=== PATIENT | male | born 1965 | race Caucasian/White ===

== ENCOUNTER → 2024-04-26 15:04 | Outpatient (BNVA) | payer OTHER, SELFPAY | PROVIDERS: Family Provider Physician Assistant Medical; PCP Nurse Practitioner Family; Visit Provider Nurse Practitioner Family | DX: Q23.1 Congenital insufficiency of aortic valve (principal); I10 Essential (primary) hypertension; R60.9 Edema, unspecified | CPT/HCPCS: 80053; 80061; 83880; 85025; 93005 ==

== ENCOUNTER 2024-06-15 16:00 | Outpatient (CLI) | payer OTHER, SELFPAY | END 2024-06-15 16:01 | disposition home or self-care (01) | LOC: SLEEP 06-16 09:21 | PROVIDERS: Family Provider Physician Assistant Medical; PCP Registered Nurse; Visit Provider Registered Nurse | DX: G47.33 Obstructive sleep apnea (adult) (pediatric) (principal) | CPT/HCPCS: G0399 ==

== ENCOUNTER 2025-06-15 08:49 | Emergency (ER) | payer OTHER, SELFPAY ==
[2025-06-15 08:55] VITALS: BP 152/73; PULSE 83; RESP 18; TEMP 36.4; O2SAT 96; BMI 25.0
--- OUTSIDE RECORDS SUMMARY | 2025-06-15 09:13 | XMS_ITS | Encounter Summary ---
Author Organization [facility] Address [address] [place] [address] Care Team Providers Care Hob Grinder Name Role Phone Kelly Motley MD Primary Care Provider Encounter Details Date Type Department Care Team (Latest Contact Info) Description 02/09/2007 Outpatient Historical [facility] Family Medicine [place] [address] [address] Hermes Cleary DO NO ADDRESS ON FILE Unspecified Essential Hypertension (Primary Dx); Other and Unspecified Hyperlipidemia Social History Tobacco Use Types Packs/Day Years Used Date Smoking Tobacco: Never Assessed Sex and Gender Information Value Date Recorded Sex Assigned at Not on file 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
--- OUTSIDE RECORDS SUMMARY | 2025-06-15 09:13 | XMS_ITS | Encounter Summary ---
Author Organization [facility] Address [address] [place] [address] Care Team Providers Care Stick Roller Name Role Phone Kelly Motley MD Primary Care Provider Encounter Details Date Type Department Care Team (Latest Contact Info) Description 11/14/2005 Outpatient Historical [facility] 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
--- OUTSIDE RECORDS SUMMARY | 2025-06-15 09:13 | XMS_ITS | Encounter Summary ---
Author Organization [facility] Address [address] [place] [address] Care Team Providers Care Healthcare Technician Name Role Phone Kelly Motley MD Primary Care Provider Encounter Details Date Type Department Care Team (Latest Contact Info) Description 10/11/2002 Outpatient Historical [facility] [address] [place] [address] [place] [phone] Omar Ramirez MD NO ADDRESS ON FILE HYPERSOMNI W SLEEP APNEA (Primary Dx) Social History Tobacco Use Types Packs/Day Years Used Date Smoking Tobacco: Never Assessed Sex and Gender Information Value Date Recorded Sex Assigned at Not on file 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
--- OUTSIDE RECORDS SUMMARY | 2025-06-15 09:13 | XMS_ITS | Encounter Summary ---
Author Organization [facility] Address [address] [place] [address] Care Team Providers Care Lapidarist Name Role Phone Kelly Motley MD Primary Care Provider Encounter Details Date Type Department Care Team (Latest Contact Info) Description 01/21/2003 Outpatient Historical [facility] Family Medicine [place] [address] [address] Hermes Cleary DO NO ADDRESS ON FILE CHEST PAIN NOS (Primary Dx); OTHER UNSPEC SLEEP APNEA Social History Tobacco Use Types Packs/Day Years Used Date Smoking Tobacco: Never Assessed Sex and Gender Information Value Date Recorded Sex Assigned at Not on file 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
--- OUTSIDE RECORDS SUMMARY | 2025-06-15 09:13 | XMS_ITS | Encounter Summary ---
Author Organization [facility] Address [address] [place] [address] Care Team Providers Care Fire And Explosion Investigator Name Role Phone Kelly Motley MD Primary Care Provider Encounter Details Date Type Department Care Team (Latest Contact Info) Description 04/27/2003 Outpatient Historical [facility] Family Medicine [place] [address] [phone] Hermes Cleary DO NO ADDRESS ON FILE IMPACTED CERUMEN (Primary Dx) Social History Tobacco Use Types Packs/Day Years Used Date Smoking Tobacco: Never Assessed Sex and Gender Information Value Date Recorded Sex Assigned at Not on file 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
--- OUTSIDE RECORDS SUMMARY | 2025-06-15 09:13 | XMS_ITS | Clinical Summary ---
Author Organization [facility] Address [address] [place] [address] Care Team Providers Care Outdoor Adventure Instructor Name Role Phone Kelly Motley MD Primary Care Provider [phone] Allergies No known active allergies Medications lovastatin (MEVACOR) 40 mg tablet TAKE 1 TABLET BY MOUTH ONCE DAILY WITH SUPPER FOR CHOLESTEROL 100 Tablet 3 5 Active tamsulosin (FLOMAX) 0.4 mg capsule Take 1 Capsule (0.4 mg) by mouth daily. 100 Capsule 3 5 Active ibuprofen (MOTRIN) 800 mg tablet Take 1 Tablet (800 mg) by mouth every 6 hours as needed for Pain. 30 Tablet 5 Active Active Problems Problem Noted Date Diagnosed Date Bicuspid aortic valve 10/19/2021 Syncope and collapse 02/10/2011 Hyperlipidemia 02/08/2011 Hypertension 02/08/2011 Sleep apnea 02/08/2011 Seizure 11/07/2010 Encounters Date Type Department Care Team Description 06/14/2025 External Device Data [facility] ABSTRACTION Provider, Abstract 06/08/2025 External Device Data [facility] ABSTRACTION Provider, Abstract from Last 3 Months Immunizations Immunization Administration Dates Next Due INFLUENZA VACCINE QUADRIVALENT 3 YR UP PF IM 01/2020,05/18/2019 Family History Medical History Relation Name Comments Other Father Heart Disease Maternal Grandfather starte d at age 84 Other Maternal Grandmother alzheim ers Colon Polyps Mother Hypertension Mother Healthy Paternal Grandfather Other Paternal Grandmother arthrit is Breast Cancer Neg Hx Colon Cancer Neg Hx Relation Name Status Comments Father Maternal Grandfather Maternal Grandmother Mother Alive Paternal Grandfather Paternal Grandmother Social History Tobacco Use Types Packs/Day Years Used Date Smoking Tobacco: Former Cigarettes Q uit: 08/18/1998 Smokeless Tobacco: Never Alcohol Use Standard Drinks/Week Comments Yes 1.7 (1 standard drink = 0.6 oz p ure alcohol) Feeling Safe Answer Date Recorded Are you in a relationship wi th someone who hurts you emotionally and/or physically? 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 Gender Identity Not on file Sexual Orientation Not on file Last Filed Vital Signs Vital Sign Reading Time Taken Comments Blood Pressure 100/70 03/14/2025 8:27 AM CDT Pulse 58 03/14/2025 8:27 AM CDT Temperature 36.4 C (97.6 F) 11/15/2024 3:34 PM CDT Respiratory Rate 18 11/15/2024 3:34 PM CDT Oxygen Saturation 100% 11/15/2024 3:34 PM CDT Inhaled Oxygen Concentration - - Weight 83.5 kg (184 lb) 03/14/2025 8:21 AM CDT Height 182.9 cm (6') 03/14/2025 8:21 AM CDT Body Mass Index 24.95 03/14/2025 8:21 AM CDT Plan of Treatment Upcoming Encounters Date Type Department Care Team (Late st Contact Info) Description 11/17/2025 3:40 PM CDT Office Visit [facility] Medicine [address] [phone] Kelly Motley MD [address] [phone] 03/15/2026 3:30 PM CDT Office Visit [facility] [address] [facility] [address] [place] [phone] Zakia Garcia, [address] [facility] [address] [place] [phone] Health Maintenance Due Date Last Done Comments DTAP/TDAP/TD VACCINES (1 - Tdap) 1984 HEPATITIS B VACCINES (1 of 3 - 19+ 3-dose series) 1984 FIT-DNA Q 3 years 2010 FIT/FOBT Q 1 year 2010 Flex Sig/CT Colonography Q 5 years 2010 ZOSTER VACCINE (1 of 2) 2015 Preventative Visit- Commercial 08/18/2024 08/22/2017 INFLUENZA VACCINE (#1) 2025 05/23/2020, 2018 COLORECTAL SCREENING 03/15/2034 03/15/2024 Colorectal Cancer Screening 03/15/2034 Insurance [employer] EX[place]ANGE [id number] [place] [id number] Advance Directives For more information, please contact: [phone] * Full Code (Latest Code Status on File) Date Activated Date Inactivated Comments 03/15/2024 11:09 AM 03/15/2024 1:53 PM * Full Code Date Activated Date Inactivated Comments 03/15/2024 10:19 AM 03/15/2024 11:09 AM Care Teams Outdoor Adventure Instructor Relationship Specialty Start Date End Date Kelly Motley MD [address] [facility] [address] [place] [phone] PCP - General Family Practice 01/01/18
--- OUTSIDE RECORDS SUMMARY | 2025-06-15 09:13 | XMS_ITS | Encounter Summary ---
Author Organization [facility] Address [address] [place] [address] Care Team Providers Care Metal Washing Machine Operator Name Role Phone Kelly Motley MD Primary Care Provider Encounter Details Date Type Department Care Team (Late st Contact Info) Description 04/29/2016 Lab Requisition [facility] Laboratory Services [facility] [address] [place] [phone] Krystian Lockett MD NO ADDRESS ON FILE Social History Tobacco Use Types Packs/Day Years Used Date Smoking Tobacco: Former Cigarettes Q uit: 08/18/1998 Smokeless Tobacco: Never Alcohol Use Standard Drinks/Week Comments Yes 1.7 (1 standard drink = 0.6 oz p ure alcohol) month Sex and Gender Information Value Date Recorded Sex Assigned at Not on file 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 Blood Collection / Unknown 04/29/2016 7:46 AM CDT 04/29/2016 11:59 AM CDT [facility] - 04/29/2016 1:07 PM CDT <100 mg/dl: Normal Fasting Glucose 100-125 mg/dl: Impaired Fasting Glucose >/=126 mg/dl: Provisional diagnosis of Diabetes The diagnosis must be confirmed. us Krystian Lockett MD CHEMISTRY ORDERABLES Final Res ult [facility] CLIA# [id number] [address] [place] [id number] * (ABNORMAL) LIPID PANEL (04/29/2016 7:46 AM CDT) CHOLESTEROL 257(H) <200 mg/dL 04/29/2016 1:07 PM CDT [facility] TRIGLYCERIDE 105 <150 mg/dL 04/29/2016 1:07 PM CDT [facility] HDL 50 40 - 59 mg/dL 04/29/2016 1:07 PM T [facility] LDL CALCULATED 186(H) <100 mg/dL 04/29/2016 1:07 PM T [facility] NON-HDL CHOLESTEROL 207(H) <130 mg/dL 04/29/2016 1:07 PM T [facility] Blood Collection / Unknown 04/29/2016 7:46 AM CDT 04/29/2016 11:59 AM CDT [facility] - 04/29/2016 1:07 PM CDT TOTAL CHOLESTEROL mg/dL Desirable <200 Borderline high 200-239 High >=240 TRIGLYCERIDES mg/dL Normal <150 Borderline high 150-199 High 200-499 Very high >=500 HDL CHOLESTEROL mg/dL Low <40 Normal 40-59 Desirable >=60 NON HDL CHOLESTEROL mg/dL Optimal <130 Near Optimal 130-159 Borderline High 160-189 Very High >=190 Calculated LDL mg/dL Optimal <100 Near Optimal 100-129 Borderline High 130-159 High 160-189 Very High >=190 ATPIII Guidelines Reference Ranges for Lipid Panels (NCEP/AMA) us Krystian Lockett MD CHEMISTRY ORDERABLES Final Res ult [facility] CLVT# [id number] [address] [place] [address] documented in this encounter Visit Diagnoses Not on filedocumented in this encounter Care Teams Metal Washing Machine Operator Relationship Specialty Start Date End Date Kelly Motley MD [address] [facility] [address] [place] [address] PCP - General Family Practice 01/01/18 documented as of this encounter
--- OUTSIDE RECORDS SUMMARY | 2025-06-15 09:13 | XMS_ITS | Encounter Summary ---
Author Organization [facility] Address [address] [place] [address] Care Team Providers Care Lithograph Printer Name Role Phone Kelly Motley MD Primary Care Provider Encounter Details Date Type Department Care Team (Latest Contact Info) Description 02/14/[address] 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
--- OUTSIDE RECORDS SUMMARY | 2025-06-15 09:13 | XMS_ITS | Encounter Summary ---
Author Organization [facility] Address [address] [place] [address] Care Team Providers Care Pediatric Clinical Dietician Name Role Phone Kelly Motley MD Primary Care Provider Encounter Details Date Type Department Care Team (Latest Contact Info) Description 09/23/2005 Outpatient Historical [facility] Medicine [place] [address] [phone] Hermes Cleary DO NO ADDRESS ON FILE HYPERTENSION NOS (Primary Dx); HYPERLIPIDEMIA NEC/NOS; FAMILY HX ISCHEM HEART DIS Social History Tobacco Use Types Packs/Day Years Used Date Smoking Tobacco: Never Assessed Sex and Gender Information Value Date Recorded Sex Assigned at Not on file 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
--- OUTSIDE RECORDS SUMMARY | 2025-06-15 09:13 | XMS_ITS | Encounter Summary ---
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
--- OUTSIDE RECORDS SUMMARY | 2025-06-15 09:13 | XMS_ITS | Encounter Summary ---
Author Organization [facility] Address [address] [place] [address] Care Team Providers Care Applications Architect Name Role Phone Kelly Motley MD Primary Care Provider Encounter Details Date Type Department Care Team (Latest Contact Info) Description 02/21/2006 Outpatient [facility] [address] [place] [phone] Hermes Cleary, NO ADDRESS ON FILE Unspecified Chest Pain (Primary Dx) Social History Tobacco Use Types Packs/Day Years Used Date Smoking Tobacco: Never Assessed Sex and Gender Information Value Date Recorded Sex Assigned at Not on file 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 Gender Identity Not on file Sexual Orientation Not on file documented as of this encounter Plan of Treatment Not on file documented as of this encounter Procedures Procedure Name Priority Date/Time Associated Diagnosis Comments STRESS TEST EXERCISE NUCLEAR MED Routine 02/21/2006 12:01 AM CDT NM MYOCARD PERF IMAG SPECT MULT Routine 02/21/2006 12:01 AM CDT documented in this encounter Results * NM MYOCARD PERF IMAG SPECT MULT (02/21/2006 12:01 AM CDT) 02/21/2006 12:0 1 AM CDT Narrative INTERFACE SYSTEM - 02/21/2006 12:01 AM CDT 02/21/2006 Radiopharmaceutical: Tc-99m (technetium-99m) tetrofosmin (rest) Dose: 10.7 mCi Tc-99m (technetium-99m) tetrofosmin (stress) 29.4 mCi Reason for Consultation: Chest pain, at risk for coronary artery disease. For evaluation of myocardial perfusion reserve / risk. RADIONUCLIDE MYOCARDIAL PERFUSION SPECT REST / STRESS WALL MOTION EJECTION FRACTION EVALUATION: The initial static images demonstrate that the heart is overall normal in size. Right ventricular activity appears normal. The left ventricular wall does not appear thickened. The distribution of tracer around the left ventricle is relatively uniform on the immediate post- stress images. There were no areas that showed obvious differences in tracer concentration in comparison to the resting study. Evaluation of left ventricular wall motion demonstrates normal wall motion and wall thickening throughout the left ventricular myocardium. Left ventricular end-diastolic volume is 128 mL. The resting left ventricular ejection fraction was 67%. Transient ischemic dilation index is 0.97. IMPRESSION: There is no obvious evidence for stress-induced cardiac ischemia. There is normal resting left ventricular regional wall motion and wall thickening. francisco Dictated By: Rikki Chambers M.D. Electronically Signed By: Rikki Chambers M.D. Date Signed: 02/21/06 JAW Procedure Note 07/06/2009 02/21/2006 Radiopharmaceutical: Tc-99m (technetium-99m) tetrofosmin (rest) Dose: 10.7 mCi Tc-99m (technetium-99m) tetrofosmin (stress) 29.4 mCi Reason for Consultation: Chest pain, at risk for coronary artery disease. For evaluation ofmyocardial perfusion reserve / risk. RADIONUCLIDE MYOCARDIAL PERFUSION SPECT REST / STRESS WALL MOTION EJECTIONFRACTION EVALUATION: The initial static images demonstrate that the heart is overall normal insize. Right ventricular activity appears normal. The left ventricular wall does not appearthickened. The distribution of tracer around the left ventricle is relatively uniform on the immediatepost- stress images. There were no areas that showed obvious differences in tracer concentration incomparison to the resting study. Evaluation of left ventricular wall motion demonstrates normal wall motionand wall thickening throughout the left ventricular myocardium. Left ventricular end-diastolic volume is 128 mL. The resting leftventricular ejection fraction was 67%. Transient ischemic dilation index is 0.97. IMPRESSION: There is no obvious evidence for stress-induced cardiac ischemia. Thereis normal resting left ventricular regional wall motion and wall thickening. jaw Dictated By: Rikki Chambers M.D. Electronically Signed By: Rikki Chambers M.D. Date Signed: 02/21/06 FRANCISCO Hermes Cleary DO [place] ORDERABLES Final Result INTERFACE SYSTEM Refer to clinic/hospital department * STRESS TEST,EXERCISE, NUCLEAR MED (02/21/2006 12:01 AM CDT) 02/21/2006 12:0 1 AM CDT Narrative INTERFACE SYSTEM - 02/21/2006 12:01 AM CDT 02/21/2006 Reason for Consultation: Chest pain, at risk for coronary artery disease. For evaluation of myocardial perfusion reserve / risk. CARDIAC STRESS TEST WITH RHYTHMIC / TREADMILL EXERCISE, MONITORING, AND INTERPRETATION: Dr. Chambers monitored the intervention and administered the pharmacologic agent. The patient exercised on a treadmill for a total time of 11 minutes 11 seconds, completing 1 minute 46 seconds of stage V of a standard David protocol, advanced as tolerated in the early stages. Exercise was terminated for exceeding target heart rate. The radiopharmaceutical agent was injected at peak exercise one minute prior to cessation. The patient was asymptomatic. Resting heart rate of 77 increased to 159 at maximum stress, which is 88% MPHR, exceeding target of 85%. Resting blood pressure of 146/98 was measured at 192/90 at maximum stress with a maximal rate-pressure product of 27K. Electrocardiographic monitoring demonstrated no changes diagnostic of ischemia nor dysrhythmia. The patient was asymptomatic and stable when discharged from the stress area. IMPRESSION: Good exercise tolerance. Satisfactory rhythmic stress in preparation for myocardial perfusion imaging, as target heart rate was exceeded. There was no clinical or electrocardiographic evidence of ischemia. Myocardial perfusion imaging report to follow. francisco Dictated By: Rikki Chambers M.D. Electronically Signed By: Rikki Chambers M.D. Date Signed: 02/21/06 [facility] Procedure Note 07/06/2009 02/21/2006 Reason for Consultation: Chest pain, at risk for coronary artery disease. For evaluation ofmyocardial perfusion reserve / risk. CARDIAC STRESS TEST WITH RHYTHMIC / TREADMILL EXERCISE, MONITORING, ANDINTERPRETATION: Dr. Chambers monitored the intervention and administered thepharmacologic agent. The patient exercised on a treadmill for a total time of 11 minutes 11seconds, completing 1 minute 46 seconds of stage V of a standard David protocol, advanced as tolerated inthe early stages. Exercise was terminated for exceeding target heart rate. The radiopharmaceuticalagent was injected at peak exercise one minute prior to cessation. The patient was asymptomatic. Restingheart rate of 77 increased to 159 at maximum stress, which is 88% MPHR, exceeding target of 85%. Restingblood pressure of 146/98 was measured at 192/90 at maximum stress with a maximal rate-pressure productof 27K. Electrocardiographic monitoring demonstrated no changes diagnostic of ischemia nor dysrhythmia.The patient was asymptomatic and stable when discharged from the stress area. IMPRESSION: Good exercise tolerance. Satisfactory rhythmic stress in preparation formyocardial perfusion imaging, as target heart rate was exceeded. There was no clinical orelectrocardiographic evidence of ischemia. Myocardial perfusion imaging report to follow. francisco Dictated By: Rikki Chambers M.D. Electronically Signed By: Rikki Chambers M.D. Date Signed: 02/21/06 JAW Hermes Cleary DO [place] ORDERABLES Final Result Performing Organization Address City/State/[facility] Co de Phone Number INTERFACE SYSTEM Refer to clinic/hospital department documented in this encounter Visit Diagnoses Diagnosis Chest pain, unspecified- Primary documented in this encounter Care Teams Applications Architect Relationship Specialty Start Date End Date Kelly Motley MD [address] [facility] [address] [place] [address] PCP - General Family Practice 01/01/18 documented as of this encounter
--- OUTSIDE RECORDS SUMMARY | 2025-06-15 09:13 | XMS_ITS | Encounter Summary ---
Author Organization [facility] Address [address] [place] [address] Care Team Providers Care Corporate Strategy Analyst Name Role Phone Kelly Motley MD Primary Care Provider [phone] Encounter Details Date Type Department Care Team (Latest Contact Info) Description 07/06/2002 Outpatient Historical [facility] Family Medicine [address] [phone] Hermes Cleary DO NO ADDRESS ON FILE OTHER UNSPEC SLEEP APNEA (Primary Dx) Social History Tobacco Use Types Packs/Day Years Used Date Smoking Tobacco: Never Assessed Sex and Gender Information Value Date Recorded Sex Assigned at Not on file 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
--- OUTSIDE RECORDS SUMMARY | 2025-06-15 09:13 | XMS_ITS | Clinical Summary ---
Author Organization [facility] Address [address] [place] [address] Care Team Providers Care Darklight Inspector Name Role Phone Kelly Motley MD Primary Care Provider Allergies No known active allergies Medications atenoloL (TENORMIN) 25 mg tablet TAKE 1 TABLET(25 MG) BY MOUTH DAILY 90 Tablet 3 0 Active lovastatin (MEVACOR) 40 mg tablet TAKE 1 TABLET(40 MG) BY MOUTH DAILY WITH SUPPER FOR CHOLESTEROL 90 Tablet 3 0 Active predniSONE (DELTASONE) 20 mg tablet Take 1 Tablet (20 mg) by mouth daily. 7 Tablet 1 Active Active Problems Problem Noted Date Diagnosed Date Syncope and collapse 02/10/2011 Hypertension 02/08/2011 Hyperlipidemia 02/08/2011 Sleep apnea 02/08/2011 Seizure 11/07/2010 Immunizations Immunization Administration Dates Next Due INFLUENZA VACCINE QUADRIVALENT 3 YR UP PF IM 01/2020,05/18/2019 05/23/2021 Family History Medical History Relation Name Comments Other Father Heart Disease Maternal Grandfather starte d at age 84 Other Maternal Grandmother alzheim ers Hypertension Mother Healthy Paternal Grandfather Other Paternal Grandmother arthrit is Breast Cancer Neg Hx Colon Cancer Neg Hx Relation Name Status Comments Father Maternal Grandfather Maternal Grandmother Mother Alive Paternal Grandfather Paternal Grandmother Social History Tobacco Use Types Packs/Day Years Used Date Smoking Tobacco: Some Days Cigarettes Last attempted to quit: 08/18/1998 Smokeless Tobacco: Never Tobacco Cessation:Ready to Q uit: No; Counseling Given: Yes Alcohol Use Standard Drinks/Week Comments Yes 1.7 (1 standard drink = 0.6 oz p ure alcohol) month Sex and Gender Information Value Date Recorded Sex Assigned at Not on file 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 Gender Identity Not on file Sexual Orientation Not on file Last Filed Vital Signs Vital Sign Reading Time Taken Comments Blood Pressure 142/78 02/09/2021 3:01 PM CDT Pulse 64 02/09/2021 3:01 PM CDT Temperature 36.6 C (97.9 F) 02/09/2021 3:01 PM CDT Respiratory Rate 18 02/09/2021 3:01 PM CDT Oxygen Saturation 98% 02/09/2021 3:01 PM CDT Inhaled Oxygen Concentration - - Weight 78 kg (172 lb) 02/09/2021 3:01 PM CDT Height 182.9 cm (6') 02/09/2021 3:01 PM CDT Body Mass Index 23.33 02/09/2021 3:01 PM CDT Plan of Treatment Health Maintenance Due Date Last Done Comments DTAP/TDAP/TD VACCINES (1 - Tdap) 1984 HEPATITIS B VACCINES (1 of 3 - 19+ 3-dose series) 1984 COLORECTAL SCREENING 2010 Colorectal Cancer Screening 2010 FIT-DNA Q 3 years 2010 FIT/FOBT Q 1 year 2010 Flex Sig/CT Colonography Q 5 years 2010 ZOSTER VACCINE (1 of 2) 2015 Preventative Visit- Commercial 08/18/2024 08/22/2017 INFLUENZA VACCINE (#1) 2025 05/23/2020, 2018 Insurance [place] [address] Advance Directives For more information, please contact: [phone] Documents on File Type Date Recorded Patient Instrument Sterilizer Expl anation Advance Directive POA 10/18/2008 Care Teams Darklight Inspector Relationship Specialty Start Date End Date Kelly Motley MD [address] [facility] [address] [place] [address] PCP - General Family Practice 01/01/18
--- OUTSIDE RECORDS SUMMARY | 2025-06-15 09:13 | XMS_ITS | Encounter Summary ---
Author Organization [facility] Address [address] 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 Gender Identity Not on file Sexual Orientation Not on file documented as of this encounter Plan of Treatment Not on file documented as of this encounter Procedures Procedure Name Priority Date/Time Associated Diagnosis Comments LIPID PANEL Routine 11/14/2005 8:35 AM INTERNAL GRINDING MACHINE OPERATOR documented in this encounter Results * (ABNORMAL) LIPID PANEL (11/14/2005 8:35 AM INTERNAL GRINDING MACHINE OPERATOR) CALCULATED TOTAL CHOLESTEROL TO HDL RATIO 3.38(L) 3.43 - 4.97 INTERFACE SYSTEM CHOLESTEROL 169 75 - 200 mg/dL INTERFACE SYSTEM GLUCOSE 81 70 - 110 mg/dL INTERFACE SYSTEM HDL 50 40 - 60 mg/dL INTERFACE SYSTEM LDL CALCULATED 101 0 - 130 mg/dL INTERFACE SYSTEM TRIGLYCERIDE 89 0 - 179 mg/dL INTERFACE SYSTEM 11/14/2005 8:35 AM INTERNAL GRINDING MACHINE OPERATOR us Historical Provider CHEMISTRY ORDERABLES Final R esult INTERFACE SYSTEM Refer to clinic/hospital department documented in this encounter Visit Diagnoses Not on filedocumented in this encounter Care Teams Circulation Supervisor Relationship Specialty Start Date End Date Kelly Motley MD [address] [phone] PCP - General Family Practice 01/01/18 documented as of this encounter
--- OUTSIDE RECORDS SUMMARY | 2025-06-15 09:13 | XMS_ITS | Encounter Summary ---
Author Organization [facility] Address [address] [place] [address] Care Team Providers Care Filer Helper Name Role Phone Kelly Motley MD Primary Care Provider Encounter Details Date Type Department Care Team (Latest Contact Info) Description 09/24/2002 Outpatient Historical [facility] [address] [place] [address] [place] [phone] Omar Ramirez MD NO ADDRESS ON FILE HYPERSOMNI W SLEEP APNEA (Primary Dx) Social History Tobacco Use Types Packs/Day Years Used Date Smoking Tobacco: Never Assessed Sex and Gender Information Value Date Recorded Sex Assigned at Not on file 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
--- OUTSIDE RECORDS SUMMARY | 2025-06-15 09:13 | XMS_ITS | Encounter Summary ---
Author Organization [facility] Address [address] 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
--- OUTSIDE RECORDS SUMMARY | 2025-06-15 09:13 | XMS_ITS | Encounter Summary ---
Author Organization [facility] Address [address] [place] [address] Care Team Providers Care Steam Plant Control Room Operator Name Role Phone Kelly Motley MD Primary Care Provider Encounter Details Date Type Department Care Team (Latest Contact Info) Description 03/03/2003 Outpatient Historical [facility] [address] [place] [address] [place] [address] Adelina Orr AUTOMATION SPECIALIST [address] [place] [address] OTHER UNSPEC SLEEP APNEA (Primary Dx) Social History Tobacco Use Types Packs/Day Years Used Date Smoking Tobacco: Never Assessed Sex and Gender Information Value Date Recorded Sex Assigned at Not on file 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
--- OUTSIDE RECORDS SUMMARY | 2025-06-15 09:13 | XMS_ITS | Encounter Summary ---
Author Organization [facility] Address [address] [place] [address] Care Team Providers Care Endband Cutter Hand Name Role Phone Kelly Motley MD Primary Care Provider Encounter Details Date Type Department Care Team (Latest Contact Info) Description 01/23/2003 Outpatient Historical [facility] [address] 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
--- OUTSIDE RECORDS SUMMARY | 2025-06-15 09:13 | XMS_ITS | Encounter Summary ---
Author Organization [facility] Address [address] [place] [address] Care Team Providers Care 411 Directory Assistance Operator Name Role Phone Kelly Motley MD Primary Care Provider Encounter Details Date Type Department Care Team (Latest Contact Info) Description 09/24/2002 Outpatient Historical [facility] [address] [place] [address] [place] [phone] Omar Ramirez MD NO ADDRESS ON FILE OTHER UNSPEC SLEEP APNEA (Primary Dx) Social History Tobacco Use Types Packs/Day Years Used Date Smoking Tobacco: Never Assessed Sex and Gender Information Value Date Recorded Sex Assigned at Not on file 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
--- OUTSIDE RECORDS SUMMARY | 2025-06-15 09:13 | XMS_ITS | Encounter Summary ---
Author Organization [facility] Address [address] [place] [address] Care Team Providers Care Systems Integration Engineer Name Role Phone Kelly Motley MD Primary Care Provider [phone] Encounter Details Date Type Department Care Team (Late st Contact Info) Description 06/08/2025 External Device Data [facility] ABSTRACTION Provider, Abstract NO ADDRESS ON FILE Social History Tobacco [...] on file Legal Sex Male 2:44 AM GAS CUTTER Gender Identity Not on file Sexual Orientation Not on file documented as of this encounter Plan of Treatment Upcoming Encounters Date Type Department Care Team (Late Contact Info) Description 11/17/2025 3:40 PM CDT Office Visit [facility] Family Medicine [place] [address] [address] Kelly Motley MD [address] [address] 03/15/2026 3:30 PM CDT Office Visit [facility] [address] [facility] [address] [place] [address] Zakia Garcia DO [address] [facility] [address] [place] [address] documented as of this encounter Visit Diagnoses Not on filedocumented in this encounter Care Teams Systems Integration Engineer Relationship Specialty Start Date End Date Kelly Motley MD [address] [facility] [address] [place] [address] PCP - General Family Practice 01/01/18 documented as of this encounter
--- OUTSIDE RECORDS SUMMARY | 2025-06-15 09:13 | XMS_ITS | Encounter Summary ---
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
--- OUTSIDE RECORDS SUMMARY | 2025-06-15 09:13 | XMS_ITS | Encounter Summary ---
Author Organization [facility] Address [address] [place] [address] Care Team Providers Care Physics Faculty Member Name Role Phone Kelly Motley MD Primary Care Provider Encounter Details Date Type Department Care Team (Latest Contact Info) Description 01/31/[address] 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
--- OUTSIDE RECORDS SUMMARY | 2025-06-15 09:13 | XMS_ITS | Encounter Summary ---
Author Organization [facility] Address [address] [place] [address] Care Team Providers Care Release Specialist Name Role Phone Kelly Motley MD Primary Care Provider [phone] Encounter Details Date Type Department Care Team (Late st Contact Info) Description 06/14/2025 External Device Data STL ABSTRACTION [...] on file Legal Sex Male 2:44 AM COMIC ILLUSTRATOR Gender Identity Not on file Sexual Orientation Not on file documented as of this encounter Plan of Treatment Upcoming Encounters Date Type Department Care Team (Late Contact Info) Description 11/17/2025 3:40 PM CDT Office Visit [facility] [place] [address] [address] Kelly Motley MD [address] [address] 03/15/2026 3:30 PM CDT Office Visit [facility] [address] [facility] [address] [place] [address] Zakia Garcia DO [address] [facility] [address] [place] [address] documented as of this encounter Visit Diagnoses Not on filedocumented in this encounter Care Teams Release Specialist Relationship Specialty Start Date End Date Kelly Motley MD [address] [facility] [address] [place] [address] PCP - General Family Practice 01/01/18 documented as of this encounter
--- NOTE | 2025-06-15 10:07 | ED_ITS ---
HPI - Epistaxis 2 General: Chief complaint: Epistaxis Stated complaint: Nose bleed spitting up blood Time Seen by Provider: 06/15/25 09:42 History of Present Illness: 59-year-old male presents emergency room with complaints of epistaxis that bled which he described as quite heavily throughout the night is daughter is a nurse and it assisted him in getting using Afrin he has been able to get it stopped completely is no longer actively bleeding. He has had some sinus congestion and headache, he felt like he had a mild sinus infection before this began. He is not on any anticoagulants. Several years ago any episode of epistaxis but resolved. Associated symptoms: Deny fever(s) Related Data Home Medications ?Medication ?Instructions ?Recorded ?Confirmed lovastatin 40 mg tablet mg PO 04/26/24 06/25/24 tamsulosin 0.4 mg capsule mg PO 04/26/24 06/25/24 Previous Rx's ?Medication ?Instructions ?Recorded atenolol 25 mg tablet 25 mg PO BID #60 tabs alprazolam 0.25 mg tablet 0.25 mg PO DAILY 30 days #10 tabs 04/30/24 CPAP machine & supplies #1 ea 06/23/24 amoxicillin 500 mg capsule 500 mg PO TID 7 days #21 ca ps 07/13/24 amoxicillin 875 mg-potassium 1 tab PO BID #20 tabs clavulanate 125 mg tablet Allergies Allergy/AdvReac Type Severity Reaction Status Date / Time No Known Allergies Allergy Verified 06/08/24 15:16 Review of Systems 2 Const: Denies: fever(s) or chills Card: Denies: chest pain Resp: Denies: dyspnea GI: Denies: abdominal pain : Denies: dysuria, urinary frequency or urinary urgency Musc: Denies: neck pain or back pain Skin/Breast: Denies: rash PFSH ED 2 PFSH: Medical History Hypertension Bicuspid aortic valve Family History Mother Hypertension Social History Smoking and tobacco/nicotine status: former use of tobacco/nicotine Alcohol intake: never Substance/Drug Use: never Adopted: No Caregiver/support person: No Lives independently: No Household members: spouse Marital status: service: No Current occupational status: employed Do you think of yourself as: Straight/Heterosexual Current gender identity: Male Physical Exam 2 Const: COMMON NORMALS: no acute distress GENERAL APPEARANCE: cooperative and comfortable ORIENTATION/CONSCIOUSNESS: Yes awake, Yes oriented to person, Yes oriented to place and Yes oriented to time HENMT: COMMON NORMALS: normocephalic, atraumatic and hearing grossly normal bilaterally HEAD & SCALP: normocephalic and atraumatic Resp: COMMON NORMALS: normal respiratory effort, No retractions, No use of accessory muscles and clear to auscultation bilaterally AUSCULTATION: clear to auscultation bilaterally Cardio: COMMON NORMALS: regular rate, regular rhythm and No murmurs present (Cardio) RATE: regular rate RHYTHM: regular rhythm GI: COMMON NORMALS: Soft to palpation and No hepatosplenomegaly present A USCULTATION: Yes normoactive bowel sounds PALPATION: Yes Soft to palpation, No Tenderness to palpation present (GI), No Guarding due to palpation present (GI) and Yes No hepatosplenomegaly present Extremity: COMMON NORMALS: normal to inspection, capillary refill normal, no clubbing, cyanosis or edema, no calf tenderness and no pedal edema Neuro: SENSORIUM/ORIENTATION: Yes oriented to person, Yes oriented to place and Yes oriented to time Skin: COMMON NORMALS: no rashes or lesions noted GENERAL SKIN EXAM: no rashes or lesions noted Course 2 Vital Signs: Vital signs: Vital Signs Temperature 97.5 F L 06/15/25 08:55 Pulse Rate 73 06/15/25 11:02 Respiratory Rate 18 06/15/25 08:55 Blood Pressure 137/86 06/15/25 11:02 Pulse Oximetry 94 06/15/25 11:02 Oxygen Delivery Me thod Room Air 06/15/25 08:55 MDM - Epistaxis Medical Decision Making No active bleeding. No home remedies including the Afrin nasal spray seem to have stopped that I called and discussed Dr. Jackson. He was willing to see the patient in the office we forwarded his information discharge patient home continue to the use of the Afrin as needed. Start him on Augmentin. Use nasal saline spray for congestion avoid forceful blowing of the nose return if he has recurrence of bleeding Medical Records I reviewed the patient's medical records. Lab Data I reviewed the patient's lab results. 06/15/25 10:06/15/25 10:25 Laboratory Results WBC 9.23 10^3/uL (3.29-11.43) 06/15/25 10: RBC 4.58 10^6/uL (3.85-5.65) 06/15/25 10:25 Hgb 14.60 g/dL (11.27-16.99) 06/15/25 10:25 Hct 44.1 % (37-53) 06/15/25 10:25 MCV 96.3 fl (82-101) 06/15/25 10:25 MCH 31.9 pg (27-33) 06/15/25 10:25 MCHC 33.1 g/dL (30-55) 06/15/25 10:25 RDW 14.0 % (12.1-15.1) 06/15/25 10:25 Plt Count 285 10^3/cmm (157-399) 06/15/25 10:25 MPV 10.2 fL (7.4-10.4) 06/15/25 10:25 Neut % (Auto) 67.7 % 06/15/25 10:25 Lymph % (Auto) 20.8 % 06/15/25 10:25 Walton % (Auto) 10.0 % 06/15/25 10:25 Eos % (Auto) 0.9 % 06/15/25 10:25 Baso % (Auto) 0.4 % 06/15/25 10:25 Neut # (Auto) 6.25 10^3/uL (1.8-7.7) 06/15/25 10:25 Lymph # (Auto) 1.9 10^3/uL (0.8-4.8) 06/15/25 10:25 Walton # (Auto) 0.9 10^3/uL (0.2-0.9) 06/15/25 10:25 Eos # (Auto) 0.1 10^3/uL (0.0-0.8) 06/15/25 10:25 Baso # (Auto) 0.0 10^3/uL (0.0-0.1) 06/15/25 10:25 Nucleated RBC % (auto) 0 % 06/15/25 10:25 Nucleated RBCs # 0.0 /100WBC 06/15/25 10:25 PT 13.10 SECONDS (12.1-14.9) 06/15/25 10:25 INR 0.93 (0.8-1.2) 06/15/25 10:25 APTT 30.1 SECONDS (23.9-36.7) 06/15/25 10:25 Sodium 139 mmol/L (136-145) 06/15/25 10:25 Potassium 4.1 mmol/L (3.5-5.1) 06/15/25 10:25 Chloride 104 mmol/L (98-107) 06/15/25 10:25 Carbon Dioxide 22 mmol/L (22-29) 06/15/25 10:25 Anion Gap 17.1 (5-19) 06/15/25 10:25 BUN 12 mg/dL (6-20) 06/15/25 10:25 Creatinine 0.8 mg/dL (0.7-1.2) 06/15/25 10:25 GFR Calculation 98.9 mL/min (90-130) 06/15/25 10:25 Glucose 98 mg/dL (65-115) 06/15/25 10:25 Calculated Osmolality 288 mOsm/kg (285-295) 06/15/25 10:25 Calcium 8.8 mg/dL (8.5-10.5) 06/15/25 10:25 Total Bilirubin 0.3 mg/dL (0.15-1.2) 06/15/25 10:25 AST 21 U/L (0-40) 06/15/25 10:25 ALT 20 U/L (0-41) 06/15/25 10:25 Alkaline Phosphatase 90 U/L (40-130) 06/15/25 10:25 Total Protein 7.0 g/dL (6.6-8.7) 06/15/25 10:25 Albumin 4.1 g/dL (3.5-5.2) 06/15/25 10:25 Globulin 2.9 g/dL (1.3-4.6) 06/15/25 10:25 No radiology studies performed this visit Discharge Plan Discharge Patient Disposition: Home Clinical Impression: Epistaxis, Sinusitis Condition: Stable Prescriptions: New amoxicillin-pot clavulanate 875-125 mg tablet 1 tab PO BID Qty: 20 0RF No Action lovastatin 40 mg tablet PO tamsulosin 0.4 mg capsule PO atenolol 25 mg tablet 25 mg PO BID Qty: 60 0RF alprazolam 0.25 mg tablet 0.25 mg PO DAILY 30 Days Qty: 10 0RF (DME) CPAP machine & supplies See Rx Instructions .Route .MEDSUPPLY Qty: 1 0RF Rx Instructions: auto 6-14 amoxicillin 500 mg capsule 500 mg PO TID 7 Days Qty: 21 0RF Discharge Orders: Discharge ED (Routine); Ordered 06/15/25 Ordered By: Lee Schmitt Referrals: Rajat Cronin MD [Physician, Ear, Nose, Throat] Discharge Diet: Usual diet Discharge Activity: Increase activity as tolerated Patient Instructions: Epistaxis - Adult, Opioid Safety, Pain Management, Patient Portal & Joey Instructions Activity Restrictions/Additional Instructions: Thank you for choosing [facility] for your healthcare needs today. It is very important that you follow up as instructed or that you return to the Emergency Department should you have concerns or if your condition changes or worsens in any way. Emergency department visits are focused on emergent conditions, in some cases you may require further evaluation on an outpatient basis. You were seen emergency room with complaints of bloody nose. Bleeding and stop by the time he arrived continue to use the Afrin every 2-4 hours as needed. (Recommend continuing the short acting Afrin.) we contacted Dr. Jackson's office and forwarded your information to him and they will contact you to see him. Also recommend he start Augmentin 1 pill twice a day for 10 days. Use of nasal saline spray for any congestion do not forcefully blow your nose as it is likely to aggravate bleeding. (Please note that included in your discharge packet is information concerning opioid safety and pain management. This information is given to all patients were discharged from the ER regardless of their discharge diagnosis or the medicines they usually take or are prescribed.) Print Language: Mozambican Coding Level of Care Code ED Special Delivery Clerk for Felisa Joyner
[2025-06-15 10:35] LABS: Hematocrit 44.1 % (37-53); Hemoglobin 14.60 g/dL (11.27-16.99); Mean Corpuscular HGB Conc 33.1 g/dL (30-55); Mean Corpuscular Hemoglobin 31.9 pg (27-33); Mean Corpuscular Volume 96.3 fl (82-101); Nucleated Red Blood Cells % 0 %; Platelet Count 285 10^3/cmm (157-399); Red Blood Count 4.58 10^6/uL (3.85-5.65); White Blood Count 9.23 10^3/uL (3.29-11.43)
[2025-06-15 10:53] LABS: INR 0.93 (0.8-1.2); Partial Thromboplastin Time 30.1 SECONDS (23.9-36.7); Prothrombin Time 13.10 SECONDS (12.1-14.9)
[2025-06-15 10:57] LABS: Alanine Aminotransferase 20 U/L (0-41); Albumin Level 4.1 g/dL (3.5-5.2); Alkaline Phosphatase 90 U/L (40-130); Anion Gap 17.1 (5-19); Aspartate Amino Transferase 21 U/L (0-40); Blood Urea Nitrogen 12 mg/dL (6-20); Calcium 8.8 mg/dL (8.5-10.5); Carbon Dioxide 22 mmol/L (22-29); Chloride 104 mmol/L (98-107); Creatinine Clr Calc Pharmacy 112.6772; Globulin 2.9 g/dL (1.3-4.6); Glucose 98 mg/dL (65-115); Osmolality Calculated 288 mOsm/kg (285-295); Potassium 4.1 mmol/L (3.5-5.1); Sodium 139 mmol/L (136-145); Total Protein 7.0 g/dL (6.6-8.7)
[2025-06-15 11:02] VITALS: BP 137/86; PULSE 73; O2SAT 94
== END 2025-06-15 11:05 | disposition home or self-care (01) ==
PROVIDERS: Emergency Provider Family Medicine; Family Provider Physician Assistant Medical; PCP Registered Nurse
DX: R04.0 Epistaxis (principal); J32.9 Chronic sinusitis, unspecified; Z87.891 Personal history of nicotine dependence; I10 Essential (primary) hypertension
CPT/HCPCS: 36415; 80053; 85025; 85610; 85730; 99283

== ENCOUNTER 2025-06-16 10:54 | Emergency (ER) | payer OTHER, SELFPAY ==
[2025-06-16 11:12] VITALS: BP 107/69; PULSE 63; TEMP 36.3; O2SAT 98; BMI 25.0
--- OUTSIDE RECORDS SUMMARY | 2025-06-16 11:35 | XMS_ITS | Encounter Summary ---
Author Organization [facility] Address [address] [place] [address] Care Team Providers Care Hot Die Picker Name Role Phone Kelly Motley MD Primary Care Provider Encounter Details Date Type Department Care Team (Latest Contact Info) Description 03/03/2003 Outpatient Historical [facility] [address] [place] [address] [place] [address] Adelina Orr RELIABILITY TECHNICIAN [address] [place] [address] OTHER UNSPEC SLEEP APNEA (Primary Dx) Social History Tobacco Use Types Packs/Day Years Used Date Smoking Tobacco: Never Assessed Sex and Gender Information Value Date Recorded Sex Assigned at Not on file 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
--- OUTSIDE RECORDS SUMMARY | 2025-06-16 11:35 | XMS_ITS | Encounter Summary ---
Author Organization [facility] Address [address] [place] [address] Care Team Providers Care Laborer Shellfish Processing Name Role Phone Kelly Motley MD Primary Care Provider [phone] Encounter Details Date Type Department Care Team (Latest Contact Info) Description 10/11/2002 Outpatient Historical [facility] [address] [place] [address] [place] [phone] Omar Ramirez MD NO ADDRESS ON FILE HYPERSOMNI W SLEEP APNEA (Primary Dx) Social History Tobacco Use Types Packs/Day Years Used Date Smoking Tobacco: Never Assessed Sex and Gender Information Value Date Recorded Sex Assigned at Not on file 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
--- OUTSIDE RECORDS SUMMARY | 2025-06-16 11:35 | XMS_ITS | Encounter Summary ---
Author Organization Address [address] [facility] [address] 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
--- OUTSIDE RECORDS SUMMARY | 2025-06-16 11:35 | XMS_ITS | Clinical Summary ---
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
--- OUTSIDE RECORDS SUMMARY | 2025-06-16 11:35 | XMS_ITS | Encounter Summary ---
Author Organization [facility] Address [address] [place] [address] Care Team Providers Care Ladies' Hat Trimmer Name Role Phone Kelly Motley MD Primary Care Provider Encounter Details Date Type Department Care Team (Latest Contact Info) Description 01/31/2003 Outpatient Historical [facility] Family Medicine [address] [phone] Hermes Cleary DO NO ADDRESS ON FILE CHEST PAIN NOS (Primary Dx) Social History Tobacco Use Types Packs/Day Years Used Date Smoking Tobacco: Never Assessed Sex and Gender Information Value Date Recorded Sex Assigned at Not on file 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
--- OUTSIDE RECORDS SUMMARY | 2025-06-16 11:35 | XMS_ITS | Encounter Summary ---
Author Organization [facility] Address [address] [place] [address] Care Team Providers Care Road Hogger Operator Name Role Phone Kelly Motley MD Primary Care Provider Encounter Details Date Type Department Care Team (Late st Contact Info) Description 10/11/[address] [facility] [address] [place] [address] [place] [phone] Social History Tobacco Use Types Packs/Day Years Used Date Smoking Tobacco: Never Assessed Sex and Gender Information Value Date Recorded Sex Assigned at Not on file Legal Sex Male 3:19 AM RISK REDUCTION COUNSELOR Gender Identity Not on file Sexual Orientation Not on file documented as of this encounter Plan of Treatment Not on file documented as of this encounter Visit Diagnoses Not on filedocumented in this encounter Care Teams Road Hogger Operator Relationship Specialty Start Date End Date Kelly Motley MD [address] [facility] [place] [address] PCP - General Family Practice 01/01/18 documented as of this encounter
--- OUTSIDE RECORDS SUMMARY | 2025-06-16 11:36 | XMS_ITS | Encounter Summary ---
Author Organization [facility] Address [address] [place] [address] Care Team Providers Care Student Ministries Director Name Role Phone Kelly Motley MD Primary Care Provider Encounter Details Date Type Department Care Team (Latest Contact Info) Description 07/06/2002 Outpatient Historical [facility] Family Medicine [address] [phone] Hermes Cleary DO NO ADDRESS ON FILE OTHER UNSPEC SLEEP APNEA (Primary Dx) Social History Tobacco Use Types Packs/Day Years Used Date Smoking Tobacco: Never Assessed Sex and Gender Information Value Date Recorded Sex Assigned at Not on file Legal Sex Male 3:19 AM CLASSIFICATION CONTROL CLERK Gender Identity Not on file Sexual Orientation Not on file documented as of this encounter Plan of Treatment Not on file documented as of this encounter Visit Diagnoses Diagnosis Unspecified sleep apnea- Primary documented in this encounter Care Teams Student Ministries Director Relationship Specialty Start Date End Date Kelly Motley MD [address] [phone] PCP - General Family Practice 01/01/18 documented as of this encounter
--- OUTSIDE RECORDS SUMMARY | 2025-06-16 11:36 | XMS_ITS | Encounter Summary ---
Author Organization [facility] Address [address] [place] [address] Care Team Providers Care Rn Transplant Name Role Phone Kelly Motlye MD Primary Care Provider Encounter Details Date Type Department Care Team (Latest Contact Info) Description 09/23/2005 Outpatient Historical [facility] Medicine [place] [address] [address] Hermes Cleary DO NO ADDRESS ON FILE HYPERTENSION NOS (Primary Dx); HYPERLIPIDEMIA NEC/NOS; FAMILY HX ISCHEM HEART DIS Social History Tobacco Use Types Packs/Day Years Used Date Smoking Tobacco: Never Assessed Sex and Gender Information Value Date Recorded Sex Assigned at Not on file 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
--- OUTSIDE RECORDS SUMMARY | 2025-06-16 11:36 | XMS_ITS | Encounter Summary ---
Author Organization [facility] Address [address] [place] [address] Care Team Providers Care Wind Projects Supervisor Name Role Phone Kelly Motley MD Primary Care Provider Encounter Details Date Type Department Care Team (Late st Contact Info) Description 04/29/2016 Lab Requisition [facility] [address] [place] [phone] Krystian Lockett MD NO ADDRESS ON FILE Social History Tobacco Use Types Packs/Day Years Used Date Smoking Tobacco: Former Cigarettes Q uit: 08/18/1998 Smokeless Tobacco: Never Alcohol Use Standard Drinks/Week Comments Yes 1.7 (1 standard drink = 0.6 oz p ure alcohol) month Sex and Gender Information Value Date Recorded Sex Assigned at Not on file Legal Sex Male 3:19 AM 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 us Krystian Lockett MD CHEMISTRY ORDERABLES Final Res ult [facility] CLIA# [id number] [address] [place] [id number] * (ABNORMAL) LIPID PANEL (04/29/2016 7:46 AM [...] 7:46 AM CDT 04/29/2016 11:59 AM CDT [facility] - 04/29/2016 1:07 PM CDT TOTAL [...] ORDERABLES Final Res ult [facility] CLAL# [id number] [address] [place] [address] documented in this encounter Visit Diagnoses Not on filedocumented in this encounter Care Teams Wind Projects Supervisor Relationship Specialty Start Date End Date Kelly Motley MD [address] [facility] [address] [place] [address] PCP - General Family Practice 01/01/18 documented as of this encounter
--- OUTSIDE RECORDS SUMMARY | 2025-06-16 11:36 | XMS_ITS | Encounter Summary ---
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 [address] [place] [phone] PCP - General Family Practice 01/01/18 documented as of this encounter
--- OUTSIDE RECORDS SUMMARY | 2025-06-16 11:36 | XMS_ITS | Encounter Summary ---
Author Organization [facility] Address [address] [place] [address] Care Team Providers Care Second Cook And Baker Name Role Phone Kelly Motley MD Primary Care Provider Encounter Details Date Type Department Care Team (Latest Contact Info) Description 09/24/2002 Outpatient Historical [facility] [address] [place] [address] [place] [phone] Omar Ramirze MD NO ADDRESS ON FILE OTHER UNSPEC SLEEP APNEA (Primary Dx) Social History Tobacco Use Types Packs/Day Years Used Date Smoking Tobacco: Never Assessed Sex and Gender Information Value Date Recorded Sex Assigned at Not on file 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
--- OUTSIDE RECORDS SUMMARY | 2025-06-16 11:36 | XMS_ITS | Clinical Summary ---
Author Organization [facility] Address [address] [place] [address] Care Team Providers Care Organizational Psychologist Name Role Phone Kelly Motley MD Primary Care Provider [phone] Allergies No known active allergies Medications lovastatin [...] Encounters Date Type Department Care Team Description 06/15/2025 External Device Data STL ABSTRACTION Provider, Abstract 06/14/2025 External Device Data STL ABSTRACTION Provider, [...] on file Legal Sex Male 2:44 AM HOOP PUNCH AND COILER OPERATOR Gender Identity Not on file Sexual [...] Description 11/17/2025 3:40 PM CDT Office Visit [facility] Medicine [place] [address] [address] Kelly Motley MD [address] [address] 03/15/2026 3:30 PM CDT Office Visit [facility] [address] [facility] [address] [place] [phone] Zakia Garcia, [address] [facility] [address] [place] [phone] Health Maintenance Due Date Last Done [...] 03/15/2024 Colorectal Cancer Screening 03/15/2034 Insurance MEDICA BALANCE [employer] EXCHANGE [id number] [id number] Advance Directives For more information, please contact: [phone] * Full Code (Latest Code Status on File) Date Activated Date Inactivated Comments 03/15/2024 11:09 AM 03/15/2024 1:53 PM * Full Code Date Activated Date Inactivated Comments 03/15/2024 10:19 AM 03/15/2024 11:09 AM Care Teams Organizational Psychologist Relationship Specialty Start Date End Date Kelly Motley MD [address] [facility] [address] [place] [address] PCP - General Family Practice 01/01/18
--- OUTSIDE RECORDS SUMMARY | 2025-06-16 11:36 | XMS_ITS | Encounter Summary ---
Author Organization [facility] Address [address] [place] [address] Care Team Providers Care Counter Top Maker Name Role Phone Kelly Motley MD Primary Care Provider Encounter Details Date Type Department Care Team (Latest Contact Info) Description 02/14/2006 Outpatient Historical [facility] Family Medicine [place] [address] [address] Hermes Cleary DO NO ADDRESS ON FILE Unspecified Essential Hypertension (Primary Dx); Unspecified Chest Pain; Other Abnormal Blood Chemistry Social History Tobacco Use Types Packs/Day Years Used Date Smoking Tobacco: Never Assessed Sex and Gender Information Value Date Recorded Sex Assigned at Not on file 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
--- OUTSIDE RECORDS SUMMARY | 2025-06-16 11:36 | XMS_ITS | Encounter Summary ---
Author Organization [facility] Address [address] [place] [address] Care Team Providers Care Digital Content Marketing Manager Name Role Phone Kelly Motley MD Primary Care Provider Encounter Details Date Type Department Care Team (Latest Contact Info) Description 01/23/2003 Outpatient Historical [facility] [address] 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
--- OUTSIDE RECORDS SUMMARY | 2025-06-16 11:36 | XMS_ITS | Encounter Summary ---
Author Organization [facility] Address [address] [place] [address] Care Team Providers Care President Ceo & Founder Name Role Phone Kelly Motley MD Primary Care Provider Encounter Details Date Type Department Care Team (Latest Contact Info) Description 04/27/2003 Outpatient Historical [facility] Family Medicine [place] [address] [phone] Hermes Cleary DO NO ADDRESS ON FILE IMPACTED CERUMEN (Primary Dx) Social History Tobacco Use Types Packs/Day Years Used Date Smoking Tobacco: Never Assessed Sex and Gender Information Value Date Recorded Sex Assigned at Not on file 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
--- OUTSIDE RECORDS SUMMARY | 2025-06-16 11:36 | XMS_ITS | Encounter Summary ---
Author Organization [facility] Address [address] [place] [address] Care Team Providers Care Plywood Factory Worker Name Role Phone Kelly Motley MD Primary Care Provider [phone] Encounter Details Date Type Department Care Team (Late st Contact Info) Description 06/15/2025 External Device Data STL ABSTRACTION [...] on file Legal Sex Male 2:44 AM C T TECH Gender Identity Not on file Sexual Orientation Not on file documented as of this encounter Plan of Treatment Upcoming Encounters Date Type Department Care Team (Late Contact Info) Description 11/17/2025 3:40 PM CDT Office Visit [facility] Family Medicine [place] [address] [address] Kelly Motley MD [address] [address] 03/15/2026 3:30 PM CDT Office Visit [facility] [address] [facility] [address] [place] [address] Zakia Garcia DO [address] [facility] [address] [place] [address] documented as of this encounter Visit Diagnoses Not on filedocumented in this encounter Care Teams Plywood Factory Worker Relationship Specialty Start Date End Date Kelly Motley MD [address] [facility] 60 [place] [address] PCP - General Family Practice 01/01/18 documented as of this encounter
--- OUTSIDE RECORDS SUMMARY | 2025-06-16 11:36 | XMS_ITS | Encounter Summary ---
Author Organization [facility] Address [address] [place] [address] Care Team Providers Care Dining Chair Seat Cushion Trimmer Name Role Phone Kelly Motley MD Primary Care Provider Encounter Details Date Type Department Care Team (Latest Contact Info) Description 01/21/2003 Outpatient Historical [facility] Family Medicine [place] [address] [address] Hermes Cleary DO NO ADDRESS ON FILE CHEST PAIN NOS (Primary Dx); OTHER UNSPEC SLEEP APNEA Social History Tobacco Use Types Packs/Day Years Used Date Smoking Tobacco: Never Assessed Sex and Gender Information Value Date Recorded Sex Assigned at Not on file Legal Sex Male 3:19 AM LEGAL ADMINISTRATIVE ASSISTANT Gender Identity Not on file Sexual Orientation Not on file documented as of this encounter Plan of Treatment Not on file documented as of this encounter Visit Diagnoses Diagnosis Chest pain, unspecified- Primary Unspecified sleep apnea documented in this encounter Care Teams Dining Chair Seat Cushion Trimmer Relationship Specialty Start Date End Date Kelly Motley MD [address] [address] PCP - General Family Practice 01/01/18 documented as of this encounter
--- OUTSIDE RECORDS SUMMARY | 2025-06-16 11:36 | XMS_ITS | Encounter Summary ---
Author Organization [facility] Address [address] [place] [address] Care Team Providers Care Bull Ladle Tender Name Role Phone Kelly Motley MD Primary Care Provider [phone] Encounter Details Date Type Department Care Team (Latest Contact Info) Description 02/21/2006 Outpatient Historical [facility] [address] [place] [phone] Hermes Cleary, NO ADDRESS ON FILE Unspecified Chest Pain (Primary Dx) Social History Tobacco Use Types Packs/Day Years Used Date Smoking Tobacco: Never Assessed Sex and Gender Information Value Date Recorded Sex Assigned at Not on file 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 Date Signed: 02/21/06 RFANCISCO Hermes Cleary DO [place] ORDERABLES Final Result [...] By: Rikki Chambers M.D. Date Signed: 02/21/06 [facility] Procedure Note 07/06/2009 02/21/2006 Reason for Consultation: [...] Date Signed: 02/21/06 JAW Hermes Cleary DO [place] ORDERABLES Final Result Performing Organization Address City/State/[facility] [[email or web address]] Co de Phone Number INTERFACE SYSTEM Refer to clinic/hospital department documented in this encounter Visit Diagnoses Diagnosis Chest pain, unspecified- Primary documented in this encounter Care Teams Bull Ladle Tender Relationship Specialty Start Date End Date Kelly Motley MD [address] [facility] [address] [place] [address] PCP - General Family Practice 01/01/18 documented as of this encounter
--- OUTSIDE RECORDS SUMMARY | 2025-06-16 11:36 | XMS_ITS | Encounter Summary ---
Author Organization [facility] Address [address] [place] [address] Care Team Providers Care Information Technology Internship Name Role Phone Kelly Motley MD Primary Care Provider Encounter Details Date Type Department Care Team (Latest Contact Info) Description 11/14/2005 Outpatient Historical [facility] 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
--- OUTSIDE RECORDS SUMMARY | 2025-06-16 11:36 | XMS_ITS | Encounter Summary ---
Author Organization [facility] Address [address] [place] [address] Care Team Providers Care Circuit Walker Name Role Phone Kelly Motley MD Primary Care Provider Encounter Details Date Type Department Care Team (Latest Contact Info) Description 02/09/2007 Outpatient Historical [facility] Family Medicine [place] [address] [address] Hermes Cleary DO NO ADDRESS ON FILE Unspecified Essential Hypertension (Primary Dx); Other and Unspecified Hyperlipidemia Social History Tobacco Use Types Packs/Day Years Used Date Smoking Tobacco: Never Assessed Sex and Gender Information Value Date Recorded Sex Assigned at Not on file 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
--- OUTSIDE RECORDS SUMMARY | 2025-06-16 11:36 | XMS_ITS | Encounter Summary ---
Author Organization [facility] Address [address] [place] [address] Care Team Providers Care Skate Shop Attendant Name Role Phone Kelly Motley MD Primary Care Provider Encounter Details Date Type Department Care Team (Latest Contact Info) Description 09/24/2002 Outpatient Historical [facility] [address] [place] [address] [place] [phone] Omar Ramirez MD NO ADDRESS ON FILE HYPERSOMNI W SLEEP APNEA (Primary Dx) Social History Tobacco Use Types Packs/Day Years Used Date Smoking Tobacco: Never Assessed Sex and Gender Information Value Date Recorded Sex Assigned at Not on file Legal Sex Male 3:19 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
--- OUTSIDE RECORDS SUMMARY | 2025-06-16 11:36 | XMS_ITS | Encounter Summary ---
Author Organization [facility] Address [address]: [place] [address] Care Team Providers Care Nursing Instructor Name Role Phone Kelly Motley MD Primary Care Provider Encounter Details Date Type Department Care Team (Late st Contact Info) Description 11/14/2005 Outpatient Historical Krystian Lockett MD NO ADDRESS ON FILE Social History Tobacco Use Types Packs/Day Years Used Date Smoking Tobacco: Never Assessed Sex and Gender Information Value Date Recorded Sex Assigned at Not on file Legal Sex Male 3:19 AM AUTOMATED MANUFACTURING INSTRUCTOR Gender Identity Not on file Sexual Orientation Not on file documented as of this encounter Plan of Treatment Not on file documented as of this encounter Procedures Procedure Name Priority Date/Time Associated Diagnosis Comments LIPID PANEL Routine 11/14/2005 8:35 AM AUTOMATED MANUFACTURING INSTRUCTOR documented in this encounter Results * (ABNORMAL) LIPID PANEL (11/14/2005 8:35 AM AUTOMATED MANUFACTURING INSTRUCTOR) CALCULATED TOTAL CHOLESTEROL TO HDL RATIO 3.38(L) 3.43 - 4.97 INTERFACE SYSTEM CHOLESTEROL 169 75 - 200 mg/dL INTERFACE SYSTEM GLUCOSE 81 70 - 110 mg/dL INTERFACE SYSTEM HDL 50 40 - 60 mg/dL INTERFACE SYSTEM LDL CALCULATED 101 0 - 130 mg/dL INTERFACE SYSTEM TRIGLYCERIDE 89 0 - 179 mg/dL INTERFACE SYSTEM 11/14/2005 8:35 AM AUTOMATED MANUFACTURING INSTRUCTOR us Historical Provider CHEMISTRY ORDERABLES Final R esult INTERFACE SYSTEM Refer to clinic/hospital department documented in this encounter Visit Diagnoses Not on filedocumented in this encounter Care Teams Nursing Instructor Relationship Specialty Start Date End Date Kelly Motley MD [address] [phone] PCP - General Family Practice 01/01/18 documented as of this encounter
--- OUTSIDE RECORDS SUMMARY | 2025-06-16 11:36 | XMS_ITS | Encounter Summary ---
Author Organization [facility] Address [address] [place] [address] Care Team Providers Care Blasting Coal Miner Name Role Phone Kelly Motley MD Primary Care Provider [phone] Encounter Details Date Type Department Care Team [...] on file Legal Sex Male 2:44 AM MANAGER IN TRAINING Gender Identity Not on file Sexual Orientation Not on file documented as of this encounter Plan of Treatment Upcoming Encounters Date Type Department Care Team (Late Contact Info) Description 11/17/2025 3:40 PM CDT Office Visit [facility] Family Medicine [place] [address] [address] Kelly Motley MD [address] [address] 03/15/2026 3:30 PM CDT Office Visit [facility] [address] [facility] [address] [place] [address] Zakia Garcia DO [address] [facility] [address] [place] [address] documented as of this encounter Visit Diagnoses Not on filedocumented in this encounter Care Teams Blasting Coal Miner Relationship Specialty Start Date End Date Kelly Motley MD [address] [facility] 60 [place] [address] PCP - General Family Practice 01/01/18 documented as of this encounter
[2025-06-16 12:03] LABS: Hematocrit 45.3 % (37-53); Hemoglobin 15.00 g/dL (11.27-16.99); Mean Corpuscular HGB Conc 33.1 g/dL (30-55); Mean Corpuscular Hemoglobin 32.3 pg (27-33); Mean Corpuscular Volume 97.6 fl (82-101); Nucleated Red Blood Cells % 0 %; Platelet Count 301 10^3/cmm (157-399); Red Blood Count 4.64 10^6/uL (3.85-5.65); White Blood Count 10.82 10^3/uL (3.29-11.43)
[2025-06-16 13:28] VITALS: BP 140/94; PULSE 70; O2SAT 99
--- NOTE | 2025-06-16 13:31 | PC.NURSE ---
Two rhino rockets placed by Dr. Robert.
--- NOTE | 2025-06-16 16:45 | W.ED.EPISTAX ---
HPI - Epistaxis General: Chief complaint: Epistaxis Stated complaint: nose bleed Time Seen by Provider: 06/16/25 12:19 History of Present Illness: 59-year-old male presents emergency room complaint of epistaxis he was nose cauterized at ENT yesterday it is continuing to bleed again. We have seen him previously that it stopped bleeding so we referred him to ENT and avoided the packing because he was having no active bleeding at that time. He is not on any anticoagulants. We had started him on Augmentin. No trauma no headache. Associated symptoms: Deny fever(s) Related Data Home Medications ?Medication ?Instructions ?Recorded ?Confirmed lovastatin 40 mg tablet mg PO 04/26/24 06/25/24 tamsulosin 0.4 mg capsule mg PO 04/26/24 06/25/24 Previous Rx's ?Medication ?Instructions ?Recorded atenolol 25 mg tablet 25 mg PO BID #60 tabs 04/26/24 alprazolam 0.25 mg tablet 0.25 mg PO DAILY 30 days #10 tabs 04/30/24 CPAP machine & supplies #1 ea 06/23/24 amoxicillin 500 mg capsule 500 mg PO TID 7 days #21 caps 07/13/24 amoxicillin 875 mg-potassium 1 tab PO BID #20 tabs 06/15/25 clavulanate 125 mg tablet lorazepam 2 mg tablet (Ativan) 2 mg PO Q4H PRN anxiety #10 tabs 06/16/25 Allergies Allergy/AdvReac Type Severity Reaction Status Date / Time No Known Allergies Allergy Verified 06/16/25 11:17 Review of Systems Const: Denies: fever(s) or chills Card: Denies: chest pain Resp: Denies: dyspnea GI: Denies: abdominal pain : Denies: dysuria, urinary frequency or urinary urgency Musc: Denies: neck pain or back pain Skin/Breast: Denies: rash PFSH ED PFSH: Medical History Hypertension Bicuspid aortic valve Family History Mother Hypertension Social History Smoking and tobacco/nicotine status: former use of tobacco/nicotine Alcohol intake: never Substance/Drug Use: never Adopted: No Caregiver/support person: No Lives independently: No Household members: spouse Marital status: service: No Current occupational status: employed Do you think of yourself as: Straight/Heterosexual Current gender identity: Male Physical Exam Const: GENERAL APPEARANCE: cooperative ORIENTATION/CONSCIOUSNESS: Yes awake, Yes oriented to person, Yes oriented to place and Yes oriented to time HENMT: COMMON NORMALS: normocephalic, atraumatic and hearing grossly normal bilaterally HEAD & SCALP: normocephalic and atraumatic Extremity: COMMON NORMALS: normal to inspection, capillary refill normal, no clubbing, cyanosis or edema, no calf tenderness and no pedal edema Neuro: SENSORIUM/ORIENTATION: Yes oriented to person, Yes oriented to place and Yes oriented to time Skin: COMMON NORMALS: no rashes or lesions noted GENERAL SKIN EXAM: no rashes or lesions noted Procedures Epistaxis Control Time Out Performed: Yes Nostril: bilateral Nose Prepped With: oxymetazoline Direct Inspection: unable to visualize Device Inserted: hemostatic balloon Patient Tolerated Procedure: well Course Vital Signs: Vital signs: Vital Signs Temperature 97.4 F L 06/16/25 11:12 Pulse Rate 70 06/16/25 13:28 Blood Pressure 140/94 06/16/25 13:28 Pulse Oximetry 99 06/16/25 13:28 Oxygen Delivery Me thod Room Air 06/16/25 11:12 MDM - Epistaxis Medical Decision Making Bilateral nasal balloons attached applied patient has no further bleeding. Will refer back to ENT. He is having quite a bit of difficulty managing needs gave him Ativan 2 mg every 4-6 hours as needed for anxiety. Return if has further bleeding. Lab Data 06/16/25 11:43 Laboratory Results WBC 10.82 10^3/uL (3.29-11.43) 06/16/25 11:43 RBC 4.64 10^6/uL (3.85-5.65) 06/16/25 11:43 Hgb 15.00 g/dL (11.27-16.99) 06/16/25 11:43 Hct 45.3 % (37-53) 06/16/25 11:43 MCV 97.6 fl (82-101) 06/16/25 11:43 MCH 32.3 pg (27-33) 06/16/25 11:43 MCHC 33.1 g/dL (30-55) 06/16/25 11:43 RDW 13.7 % (12.1-15.1) 06/16/25 11:43 Plt Count 301 10^3/cmm (157-399) 06/16/25 11:43 MPV 10.4 fL (7.4-10.4) 06/16/25 11:43 Neut % (Auto) 71.5 % 06/16/25 11:43 Lymph % (Auto) 19.2 % 06/16/25 11:43 [place] % (Auto) 7.9 % 06/16/25 11:43 Eos % (Auto) 0.6 % 06/16/25 11:43 Baso % (Auto) 0.5 % 06/16/25 11:43 Neut # (Auto) 7.74 10^3/uL (1.8-7.7) H 06/16/25 11:43 Lymph # (Auto) 2.1 10^3/uL (0.8-4.8) 06/16/25 11:43 [place] # (Auto) 0.9 10^3/uL (0.2-0.9) 06/16/25 11:43 Eos # (Auto) 0.1 10^3/uL (0.0-0.8) 06/16/25 11:43 Baso # (Auto) 0.1 10^3/uL (0.0-0.1) 06/16/25 11:43 Nucleated RBC % (auto) 0 % 06/16/25 11:43 Nucleated RBCs # 0.0 /100WBC 06/16/25 11:43 No radiology studies performed this visit Discharge Plan Discharge Patient Disposition: Home Clinical Impression: Epistaxis Condition: Stable Prescriptions: New lorazepam [Ativan] 2 mg tablet 2 mg PO Q4H PRN (Reason: anxiety) Qty: 10 0RF Rx Instructions: do not exceed 5 doses per 24 hrs No Action lovastatin 40 mg tablet PO tamsulosin 0.4 mg capsule PO atenolol 25 mg tablet 25 mg PO BID Qty: 60 0RF alprazolam 0.25 mg tablet 0.25 mg PO DAILY 30 Days Qty: 10 0RF (DME) CPAP machine & supplies See Rx Instructions .Route .MEDSUPPLY Qty: 1 0RF Rx Instructions: auto 6-14 amoxicillin 500 mg capsule 500 mg PO TID 7 Days Qty: 21 0RF amoxicillin-pot clavulanate 875-125 mg tablet 1 tab PO BID Qty: 20 0RF Discharge Orders: Discharge ED (Routine); Ordered 06/16/25 Ordered By: Lee Schmitt Referrals: Joe James, HIGH SCHOOL PRINCIPAL [Primary Care Provider, Family Practice] Discharge Diet: Usual diet Discharge Activity: Increase activity as tolerated Patient Instructions: Opioid Safety, Pain Management, Patient Portal & Joey Instructions Activity Restrictions/Additional Instructions: [facility] today. It is very important that you follow up as instructed or that you return to the Emergency Department should you have concerns or if your condition changes or worsens in any way. Emergency department visits are focused on emergent conditions, in some cases you may require further evaluation on an outpatient basis. You are seen in the emergency room with continued nosebleeding. This time we elected to pack the nose. Continue take the previously prescribed Augmentin you are also given Ativan to help deal with discomfort from the nasal packing follow-up with Dr. Jackson's office as soon as you are able (Please note that included in your discharge packet is information concerning opioid safety and pain management. This information is given to all patients were discharged from the ER regardless of their discharge diagnosis or the medicines they usually take or are prescribed.) Print Language: Urdu Coding Level of Care Code ED Computed Tomography Technician for Felisa Joyner
== END 2025-06-16 13:32 | disposition home or self-care (01) ==
PROVIDERS: Emergency Provider Family Medicine; PCP Registered Nurse
DX: R04.0 Epistaxis (principal); Z87.891 Personal history of nicotine dependence; I10 Essential (primary) hypertension
CPT/HCPCS: 36415; 85025; 99283; J9999